=== PATIENT | male | born 1955 | race African-American/Black ===

== ENCOUNTER 2020-08-03 23:27 | Inpatient (IN) | payer SELFPAY ==
[2020-08-03] MEDS ORDERED: DOPamine 400 MG/D5W 250 ML 250 ML ONE (23:38)
[2020-08-03] MEDS ORDERED: Cefepime 1 GM VIAL ONE (23:42)
[2020-08-03] MEDS ORDERED: Sodium Bicarb 50 MEQ/50 ML Abboject 8.4% SYRINGE ONE (23:42)
[2020-08-04 00:04] LABS: Actual Bicarbonate (HCO3a) 8.2 mEq/L (22-28); Analyzer IN Cardio ER; Base Excess (BEa) -20.7 mEq/L (-2.0 to +3.0); CO2 Tension 29.8 mmHg (35.0-45.0); Calcium, Ionized (arterial) 0.68 mmol/L (1.12-1.30); Carboxyhemoglobin (COHb) 0.3 gm% (0.0-3.0); Hemoglobin (Hb) 9.9 g/dL (14.0-18.0); O2 Tension (PaO2), arterial 375.6 mmHg (> 80.0); Potassium - ABG Lab 4.94 mmol/L (3.70-5.30)
[2020-08-04 00:07] LABS: Puncture Site RRA; pH, Arterial 7.06 (7.35-7.45)
[2020-08-04 00:28] LABS: SARS-CoV-2 NAA Rapid Test Not Detected (NotDetected)
[2020-08-04 00:29] LABS: Bacteria/HPF None Seen HPF (None Seen); Bilirubin 2+ (Negative); Blood, Urine 3+ (Negative); Clarity Extra Turbid (Clear); Glucose, Urine (Dipstick) Normal (Negative); Ketone, Urine Negative (Negative); Leukocyte Negative Leu/uL (Negative); Nitrite Negative (Negative); Protein, Urine (Dipstick) 300 mg/dL (Neg-Trace); Specific Gravity, Urine 1.018 (1.002-1.036); Squamous Epithelial None Seen HPF (0-3); Transitional Epithelial 0-3 HPF (None Seen); Urobilinogen Normal mg/dL (Less than 2); WBC/HPF 21-50 HPF (0-3); pH, Urine 5.5 (5.0-9.0)
[2020-08-04 00:30] LABS: Anion Gap 31 mmol/L (10-20); BUN (Urea Nitrogen) 69 mg/dL (8.4-25.7); Calc. Creatinine Clearance 0 mL/min (70-130); Carbon Dioxide 10 mmol/L (23-31); Chloride 90 mmol/L (98-107); Glucose 80 mg/dL (80-115); Potassium 5.2 mmol/L (3.5-5.1); Sodium 126 mmol/L (136-145)
[2020-08-04 00:31] LABS: Sperm/HPF 4+ HPF (None Seen)
[2020-08-04 00:33] LABS: Calcium 4.5 mg/dL (7.8-10.44)
[2020-08-04 00:41] LABS: Amphetamine Not Detected (NotDetected); Barbiturates Screen Not Detected (NotDetected); Benzodiazepine Screen Not Detected (NotDetected); Cocaine Metabolite Screen Not Detected (NotDetected); Medtox Control Line Valid? VALID (VALID); Medtox Reader # READER 4; Methadone Not Detected (NotDetected); Methamphetamine Not Detected (NotDetected); Opiate Screen Not Detected (NotDetected); Oxycodone Screen Not Detected (NotDetected); Phencyclidine (PCP) Not Detected (NotDetected); THC/Cannabinoid Screen Not Detected (NotDetected); Tricyclic Screen Not Detected (NotDetected)
[2020-08-04] MEDS ORDERED: Cefepime 2 GM VIAL ONE (00:42)
[2020-08-04] MEDS ORDERED: Vancomycin 1 GM/200 ML BAG ONE (00:42)
[2020-08-04] MEDS ORDERED: Sodium Chloride 0.9% 100 ML ONE (00:42)
[2020-08-04] MEDS ORDERED: Fentanyl CADD 100 ML IV SCH (00:45)
[2020-08-04] MEDS ORDERED: Norepinephrine 8 MG/0.9% NS 250 ML ONE (03:00)
[2020-08-04] MEDS ORDERED: Sodium Bicarb 50 MEQ/50 ML Abboject 8.4% SYRINGE ONE ×2 (06:07→07:34)
[2020-08-04] MEDS ORDERED: Calcium Chloride 1 GM/10 ML Abboject SYRINGE ONE ×2 (06:07→08:59)
[2020-08-04] MEDS ORDERED: Atropine Sulfate 1 mg/10 ml Syringe ONE (06:07)
[2020-08-04] MEDS ORDERED: Dextrose 50% Abboject 50 ML SYRINGE ONE ×2 (06:52→20:08)
[2020-08-04] MEDS ORDERED: Calcium Gluc 4.6 MEQ/10 ML (100 MG/ML) SLOW IVP ONE (07:08)
[2020-08-04 07:41] LABS: Actual Bicarbonate (HCO3a) 7.2 mEq/L (22-28); Base Excess (BEa) -23.6 mEq/L (-2.0 to +3.0); CO2 Tension 34.6 mmHg (35.0-45.0); Calcium, Ionized (arterial) 0.62 mmol/L (1.12-1.30); Carboxyhemoglobin (COHb) 0.8 gm% (0.0-3.0); Hemoglobin (Hb) 8.5 g/dL (14.0-18.0); O2 Tension (PaO2), arterial 96.3 mmHg (> 80.0); Potassium - ABG Lab 5.16 mmol/L (3.70-5.30)
[2020-08-04 07:42] LABS: Puncture Site RFA; pH, Arterial 6.94 (7.35-7.45)
[2020-08-04] MEDS ORDERED: Vecuronium 10 MG VIAL IV PRN (07:45)
[2020-08-04 08:06] VITALS: BMI 28.6
[2020-08-04] MEDS: Norepinephrine 8 MG/0.9% NS 250 ML IVPB PRN ×3 (08:30→14:20)
[2020-08-04] MEDS ORDERED: Electrolyte Replacement Protocol 1 EACH IVPB SCH (08:33)
[2020-08-04] MEDS ORDERED: VANC IVPB PRN (08:36)
[2020-08-04] MEDS ORDERED: Albumin 25% 25 GM/100 ML BOT IVPB SCH (08:36)
[2020-08-04] MEDS ORDERED: CEFEPIME IVPB PRN (08:36)
[2020-08-04] MEDS ORDERED: Sodium Bicarb 50 MEQ/50 ML Abboject 8.4% SYRINGE IVP SCH ×2 (08:44→08:45)
[2020-08-04] MEDS ORDERED: Albumin 5% 500 ML ONE (08:46)
[2020-08-04 08:49] LABS: BUN (Urea Nitrogen) 71 mg/dL (8.4-25.7); Calc. Creatinine Clearance 17 mL/min (70-130); Calcium 4.5 mg/dL (7.8-10.44); Carbon Dioxide Less than 8 mmol/L (23-31); Chloride 93 mmol/L (98-107); Glucose 34 mg/dL (80-115); Magnesium 3.1 mg/dL (1.6-2.6); Phosphorus 15.9 mg/dL (2.3-4.7); Potassium 5.3 mmol/L (3.5-5.1); Sodium 126 mmol/L (136-145)
[2020-08-04 08:51] LABS: CKMB 299.8 ng/mL (0-6.6)
[2020-08-04] MEDS ORDERED: DOPamine 400 MG/D5W 250 ML 250 ML ONE (08:53)
[2020-08-04] MEDS ORDERED: methylPREDNISolone Sod Succ/PF 125 MG/2 ML VIAL ONE (08:59)
[2020-08-04] MEDS ORDERED: Sodium Chloride 0.9% 1,000 ML IV SCH (09:00)
[2020-08-04] MEDS ORDERED: Hydrocortisone Sod Succ/PF 100 mg/2 ml Vial IVP SCH (09:00)
[2020-08-04] MEDS ORDERED: Famotidine/PF 20 mg/2ml Vial SLOW IVP SCH (09:00)
[2020-08-04] MEDS ORDERED: Vancomycin 1 GM in Premix Bag 1 BAG IVPB SCH (09:00)
[2020-08-04] MEDS ORDERED: Cefepime 2 GM in Sodium Chloride 0.9% 100 ML IVPB SCH (09:00)
[2020-08-04] MEDS ORDERED: Sodium Bicarbonate 150 MEQ in Dextrose 5% in Water 1,000 ML IV SCH ×2 (09:00→16:31)
[2020-08-04 09:24] LABS: Prothrombin Time 44.6 sec (12.0-14.7)
[2020-08-04 09:25] LABS: INR-International Normal Ratio 4.6; PTT 133.2 sec (22.9-36.1)
[2020-08-04 09:29] LABS: Mean Corpuscular HGB CONC 29.9 g/dL (32.0-36.0); Mean Corpuscular Hemoglobin 25.8 pg (27.0-31.0); Mean Corpuscular Volume 86.4 fL (78.0-98.0); Mean Platelet Volume 10.9 fL (7.4-10.4); Platelet Count 247 thou/uL (130-400); RBC Distribution Width 17.5 % (11.5-14.5); Red Blood Cell (RBC) Count 3.49 mill/uL (4.70-6.10); White Blood Cell (WBC) Count 18.6 thou/uL (4.8-10.8)
[2020-08-04 09:30] LABS: Band 15 % (5-11); Burr Cells SLIGHT = 2-5 cells (100X) (0-1/hpf); Eosinophils 3 % (0-10); Lymphocytes 19 % (21-51); MDiff Complete? YES; Monocytes 3 % (0-10); Neutrophil 60 % (42-75); Polychromasia MODERATE = 3-4 cells (100X) (0-2/hpf); Schistocytes SLIGHT = 2-5 cells (100X) (0-1/hpf)
[2020-08-04 09:39] LABS: Troponin I 0.198 ng/mL (< 0.028)
[2020-08-04] MEDS ORDERED: Morphine 2 MG/ML VIAL SLOW IVP PRN (10:00)
[2020-08-04] MEDS ORDERED: Fentanyl BOLUS 250 ML IVPB PRN (10:00)
[2020-08-04] MEDS ORDERED: Propofol BOLUS 1,000 MG/100 ML VIAL IV PRN (10:00)
[2020-08-04] MEDS ORDERED: Propofol 1,000 MG/100 ML VIAL IV PRN (10:00)
[2020-08-04] MEDS ORDERED: Lorazepam 2 MG/ML VIAL SLOW IVP PRN (10:00)
[2020-08-04 10:02] LABS: ALT (SGPT) 427 U/L (8-55); AST (SGOT) 1741 U/L (5-34); Albumin 1.4 g/dL (3.4-4.8); Alkaline Phosphatase 218 U/L (40-110); Anion Gap 30 mmol/L (10-20); BUN (Urea Nitrogen) 66 mg/dL (8.4-25.7); Bilirubin, Total 10.6 mg/dL (0.2-1.2); Calc. Creatinine Clearance 17 mL/min (70-130); Chloride 98 mmol/L (98-107); Globulin 1.9 g/dL (2.4-3.5); Glucose 71 mg/dL (80-115); Potassium 5.1 mmol/L (3.5-5.1); Protein, Total 3.3 g/dL (5.8-8.1); Sodium 131 mmol/L (136-145)
[2020-08-04 10:08] LABS: Calcium 4.5 mg/dL (7.8-10.44); Carbon Dioxide 8 mmol/L (23-31)
[2020-08-04] MEDS ORDERED: Calcium Gluconate 9.2 MEQ in Sodium Chloride 0.9% 100 ML IVPB SCH (11:00)
[2020-08-04] MEDS: DOPamine 400 MG/D5W 250 ML 250 ML IVPB SCH ×2 (11:17→17:18)
[2020-08-04] MEDS: Albumin 25% 25 GM/100 ML BOT IVPB SCH ×2 (11:34→19:15)
[2020-08-04 12:10] LABS: Actual Bicarbonate (HCO3a) 6.7 mEq/L (22-28); Base Excess (BEa) -21.9 mEq/L (-2.0 to +3.0); Calcium, Ionized (arterial) 0.68 mmol/L (1.12-1.30); Carboxyhemoglobin (COHb) 0.7 gm% (0.0-3.0); Hemoglobin (Hb) 7.7 g/dL (14.0-18.0); O2 Tension (PaO2), arterial 65.9 mmHg (> 80.0); Potassium - ABG Lab 4.97 mmol/L (3.70-5.30)
[2020-08-04 12:10] LABS: Hemoglobin 7.1 g/dL (14.0-18.0); Mean Corpuscular HGB CONC 30.4 g/dL (32.0-36.0); Mean Corpuscular Volume 85.6 fL (78.0-98.0); Mean Platelet Volume 11.7 fL (7.4-10.4); Platelet Count 175 thou/uL (130-400); RBC Distribution Width 17.7 % (11.5-14.5); Red Blood Cell (RBC) Count 2.71 mill/uL (4.70-6.10); White Blood Cell (WBC) Count 15.9 thou/uL (4.8-10.8)
[2020-08-04 12:13] LABS: CO2 Tension 24.5 mmHg (35.0-45.0); pH, Arterial 7.06 (7.35-7.45)
[2020-08-04 12:15] LABS: ALV-art Gradient 259.975 mmHg (0-20); Puncture Site RFA
[2020-08-04 12:24] LABS: BUN (Urea Nitrogen) 58 mg/dL (8.4-25.7); Calc. Creatinine Clearance 21 mL/min (70-130); Chloride 104 mmol/L (98-107); Glucose 77 mg/dL (80-115); Magnesium 2.4 mg/dL (1.6-2.6); Potassium 4.8 mmol/L (3.5-5.1); Sodium 134 mmol/L (136-145)
[2020-08-04 12:30] LABS: Carbon Dioxide Less than 8 mmol/L (23-31); Phosphorus 13.1 mg/dL (2.3-4.7)
[2020-08-04 12:34] LABS: CKMB 163.3 ng/mL (0-6.6)
[2020-08-04 12:43] LABS: Lactic Acid 13.5 mmol/L (0.5-2.2)
[2020-08-04 12:46] LABS: Band 16 % (5-11); Burr Cells MODERATE= 6-15 cells (100X) (0-1/hpf); Hypochromia SLIGHT = 6-15 cells (100X) (0-5/hpf); Lymphocytes 32 % (21-51); MDiff Complete? YES; Metamyelocyte 1 % (0-0); Monocytes 10 % (0-10); Neutrophil 41 % (42-75); Platelet Morphology Comment Appears Adequate; Polychromasia MODERATE = 3-4 cells (100X) (0-2/hpf); Schistocytes SLIGHT = 2-5 cells (100X) (0-1/hpf)
[2020-08-04 13:21] LABS: Prothrombin Time 67.7 sec (12.0-14.7)
[2020-08-04 13:24] LABS: INR-International Normal Ratio 7.8
[2020-08-04 13:25] LABS: PTT 183.2 sec (22.9-36.1)
[2020-08-04] MEDS ORDERED: Phytonadione 10 MG in Sodium Chloride 0.9% 50 ML IVPB SCH (14:45)
[2020-08-04 15:05] VITALS: BP 98/56
[2020-08-04 15:13] VITALS: TEMP 93.6
[2020-08-04] MEDS ORDERED: Calcium Chloride 13.6 MEQ in Sodium Chloride 0.9% 100 ML IVPB SCH (16:45)
[2020-08-04 18:54] LABS: #Lymphocytes 3.3 thou/uL (1.20-3.40); #Monocytes 1.2 thou/uL (0.11-0.59); #Neutrophils 6.9 thou/uL (1.40-6.50); %Basophils 0.3 % (0.0-1.0); %Eosinophils 0.2 % (0.0-10.0); %Monocytes 10.1 % (0.0-10.0); %Neutrophils 60.4 % (42.0-75.0); Hemoglobin 7.5 g/dL (14.0-18.0); Mean Corpuscular HGB CONC 30.2 g/dL (32.0-36.0); Mean Corpuscular Hemoglobin 26.8 pg (27.0-31.0); Mean Corpuscular Volume 88.5 fL (78.0-98.0); Mean Platelet Volume 11.6 fL (7.4-10.4); Platelet Count 132 thou/uL (130-400); RBC Distribution Width 17.7 % (11.5-14.5); White Blood Cell (WBC) Count 11.5 thou/uL (4.8-10.8)
[2020-08-04 19:07] LABS: INR-International Normal Ratio 4.4
[2020-08-04 19:08] LABS: PTT 133.9 sec (22.9-36.1)
[2020-08-04 19:23] LABS: Lactic Acid 16.7 mmol/L (0.5-2.2)
[2020-08-04 19:24] LABS: BUN (Urea Nitrogen) 63 mg/dL (8.4-25.7); Calc. Creatinine Clearance 17 mL/min (70-130); Calcium 5.3 mg/dL (7.8-10.44); Carbon Dioxide Less than 8 mmol/L (23-31); Chloride 95 mmol/L (98-107); Glucose 127 mg/dL (80-115); Phosphorus 18.1 mg/dL (2.3-4.7); Potassium 7.3 mmol/L (3.5-5.1); Sodium 129 mmol/L (136-145)
[2020-08-04] MEDS ORDERED: Insulin Regular 300 UNITS/3 ML VIAL ONE ×2 (20:07→20:10)
[2020-08-04] MEDS ORDERED: Insulin Regular 300 UNITS/3 ML VIAL IVP SCH (20:30)
[2020-08-04] MEDS ORDERED: Dextrose 50% Abboject 50 ML SYRINGE SLOW IVP SCH (20:30)
[2020-08-04 20:39] LABS: Sodium, Urine Less than 20 mmol/L (Not Available); Urea Nitrogen, Random Urine 351 mg/dl
[2020-08-04 21:04] LABS: Protein, Urine Random Quant 397 mg/dL (1-14)
[2020-08-05] MEDS ORDERED: prednisoLONE 15 MG/5 ML UDCUP PO SCH (09:00)
[2020-08-05] MEDS ORDERED: Famotidine/PF 20 mg/2ml Vial SLOW IVP SCH (09:00)
[2020-08-05] MEDS ORDERED: Cefepime 2 GM in Sodium Chloride 0.9% 100 ML IVPB SCH (09:00)
== END 2020-08-04 20:46 | disposition expired | DRG 871 ==
LOC: ERS 23:27 → CCU 08-04 08:14
PROVIDERS: ADMIT Student in an Organized Health Care Education/Training Program; ATTEND Student in an Organized Health Care Education/Training Program
PROC: 3E043XZ Introduction of Vasopressor into Central Vein, Percutaneous Approach (ICD-10-PCS; principal; 2020-08-04)
PROC: 30233K1 Transfusion of Nonautologous Frozen Plasma into Peripheral Vein, Percutaneous Approach (ICD-10-PCS; 2020-08-04)
PROC: 30233N1 Transfusion of Nonautologous Red Blood Cells into Peripheral Vein, Percutaneous Approach (ICD-10-PCS; 2020-08-04)
PROC: 5A1935Z Respiratory Ventilation, Less than 24 Consecutive Hours (ICD-10-PCS; 2020-08-04)
PROC: 0BH17EZ Insertion of Endotracheal Airway into Trachea, Via Natural or Artificial Opening (ICD-10-PCS; 2020-08-04)
PROC: 02H633Z Insertion of Infusion Device into Right Atrium, Percutaneous Approach (ICD-10-PCS; 2020-08-04)
DX: A41.9 Sepsis, unspecified organism (principal); J96.01 Acute respiratory failure with hypoxia; R65.21 Severe sepsis with septic shock; K76.7 Hepatorenal syndrome; K72.00 Acute and subacute hepatic failure without coma; N17.9 Acute kidney failure, unspecified; E87.2 Acidosis; E87.1 Hypo-osmolality and hyponatremia; K92.2 Gastrointestinal hemorrhage, unspecified; I10 Essential (primary) hypertension; E87.6 Hypokalemia; E83.51 Hypocalcemia; Z66 Do not resuscitate; E86.0 Dehydration; F10.10 Alcohol abuse, uncomplicated; Z20.822 Contact with and (suspected) exposure to COVID-19; M19.90 Unspecified osteoarthritis, unspecified site; E88.09 Other disorders of plasma-protein metabolism, not elsewhere classified; K74.60 Unspecified cirrhosis of liver; E87.5 Hyperkalemia; D64.9 Anemia, unspecified; E83.39 Other disorders of phosphorus metabolism; I46.9 Cardiac arrest, cause unspecified; Z79.899 Other long term (current) drug therapy; R57.8 Other shock
CPT/HCPCS: 0240U; 36415; 36416; 36430; 36556; 36600; 71045; 80306; 81003; 81015; 82550; 82553; 82570; 82805; 83605; 83735; 84100; 84156; 84300; 84484; 84540; 85025; 85610; 85730; 86850; 86900; 86901; 87040; 93005; 93975; 94002; 96365; 96366; 96368; 96375; 99292; J0461; J0692; J1265; J1720; J1815; J2001; J2930; J3010; J3370; J3430; J3490; J7070; P9016; P9045; P9047; P9059